=== PATIENT | male | born 1985 | race Caucasian/White ===

== ENCOUNTER 2017-07-14 06:55 | Inpatient (IN) | payer OTHER ==
[~2017-07-14] VITALS: Ht 170.2 cm; Wt 112.6 kg
[2017-07-14 07:45] VITALS: BP 127/80; PULSE 81; RESP 18
[2017-07-14 08:03] VITALS: BP 127/80; RESP 18
[2017-07-14 09:27] VITALS: Ht 170.2 cm; Wt 112.6 kg
[2017-07-14] MEDS ORDERED: morphine 2 MG INJ IV PRN (10:00)
[2017-07-14] MEDS ORDERED: TAMSULOSIN (SR) 0.4 MG CAP PO SCH (10:00)
[2017-07-14] MEDS ORDERED: ONDANSETRON 4 MG INJ IV PRN (10:00)
[2017-07-14] MEDS ORDERED: NACL 0.9% 3 ML SYG IV SCH (10:00)
[2017-07-14] MEDS ORDERED: IBUPROFEN 600 MG TAB PO PRN (10:00)
--- NOTE | 2017-07-14 10:15 | HP ---
Date/Time of Note Date/Time of Note DATE: 07/14/17 TIME: 10:02 Assessment/Plan VTE Prophylaxis VTE Prophylaxis Intervention: LMWH Lines/Catheters IV Catheter Type (from Nrsg): Peripheral IV Assessment/Plan Assessment/Plan 1. Right 2mm calculus within distal ureter - Will get KUB to monitor progression of stone - Pain control with Toradol, Morphine, and Dilaudid - Flomax BID - IV NSS and will encourage increase in fluid intake - Will place consult to urology 2. UTI - + UA from transfer hospital - Elevated WBC 15 - Patient had hives with PCN but willing to try again. Will give dose of Rocephin and have benadryl on board just in case. If has reaction will change antibiotics. Having abdominal issues with Cipro after 1 dose at other ED -UCx ordered for sensitivities 3. SEAN - Cr 1.4 and will continue to monitor. IV NSS - will avoid nephrotoxic agents 4. DVT prophylaxis - Lovenox 5. Code Status - Full Code 6. Diet - Regular All documentation, Labs, and imaging studies were reviewed personally by myself. >45 minutes was spent with this patient upon admission. All questions and concerns addressed. HPI/ROS Admit Date/Time Admit Date/Time Jul 14, 2017 at 07:40 Hx of Present Illness 32 yo M with h/o nephrolitiasis presented to [facility] with right flank pain, nausea, and vomiting. Patient states the pain is similar to his previous episode of kidney stones. He states the pain is severe, right flank area, radiating to his groin which started at 12:30am last night. CT abdomen showed 2mm right ureteral stone with mild right hydroureteronephrosis. He was given pain medication and IV NSS with minimal relief. He was also found to have an elevated WBC and + UA. One dose of Cipro was given prior to transfer. Patient states he has had multiple episodes of nephrolithiasis since November 2016 with the last being 3 weeks ago with a 7mm stone in left ureter. He has never been hospitalized in the past. He has not followed with a Urologist in the past as well. Patient does admit to a PCN allergy with reported hives as a child but denies any anaphylaxis reaction. He would like to try PCN again but offered cephalosporin. Patient states he was getting upset stomach after Cipro was administered. ROS Constitutional: chills, diaphoresis, nausea, No febrile Eyes: no complaints ENT: no complaints Respiratory: no complaints Cardiovascular: no complaints Gastrointestinal: nausea, vomiting, No decreased appetite Genitourinary: flank pain, No dysuria, No hematuria Musculoskeletal: no complaints Skin: no complaints Neurologic: no complaints Endocrine: no complaints Lymphatic: no complaints Psychological: no complaints Immunologic: no complaints PMH/Family/Social Past Medical History Medical History: other (kidney stones) Past Surgical History Past Surgical Hx: no surgical history Family History Significant Family History: no pertinent family hx Social History Alcohol Use: none Smoking Status: Never smoker Drug Use: none Exam/Review of Systems Vital Signs Vitals Vital Signs Date Time Temp Pulse Resp B/P Pulse Ox O2 Delivery O2 Flow Rate FiO2 07/14/17 08:03 97.9 81 18 127/80 98 Exam Constitutional: alert, distress, oriented, well developed Psych: no complaints Head: atraumatic, normocephalic Eyes: EOMI, nl sclera ENMT: mucosa pink and moist Neck: non-tender, supple Respiratory: clear to auscultation, normal air movement, No crackles/rales, No diminished breath sounds, No wheezing Cardiovascular: nl pulses, regular rate and rhythm, No murmurs/extra sounds Gastrointestinal: nl liver, spleen, soft, No distended, No mass, No rebound or guarding, No tender Genitourinary - Male: CVA tenderness, No discharge Musculoskeletal: nl extremities to inspection Extremities: normal pulses Neurological: [employer] II-XII intact, nl mental status, nl speech, nl strength Skin: nl turgor Lymph: nl lymph nodes Medications Medications Current Medications Ondansetron HCl (Zofran Inj) 4 mg Q6H PRN IV NAUSEA AND/OR VOMITING; Start 08/20 at 10:00 Hydromorphone HCl (Dilaudid) 0.5 mg Q4H PRN IV SEVERE PAIN LEVEL 7-10; Start at 10:00 Enoxaparin Sodium (Lovenox) 40 mg DAILY SC ; Start 07/15/17 at 09:00 Morphine Sulfate (morphine) 2 mg Q4H PRN IV severe pain; Start 07/14/17 at 10: 00 Tamsulosin HCl (Flomax) 0.4 mg HS PO ; Start 9/10/17 at 10:00 Ketorolac Tromethamine (Toradol) 30 mg Q6H PRN IV PAIN; Start 07/14/17 at 10:00 ; Stop 07/17/17 at 09:59 MICK TORRES MD Jul 14, 2017 10:13
[2017-07-14] MEDS ORDERED: DIPHENHYDRAMINE 50 MG INJ IV PRN (10:30)
[2017-07-14] MEDS ORDERED: CIPROFLOXACIN 400MG/D5W 200 ML IVPB SCH (10:30)
[2017-07-14] MEDS ORDERED: CEFTRIAXONE 1 GM INJ IM SCH (10:30)
[2017-07-14] MEDS: KETOROLAC 30 MG INJ IV PRN ×2 (10:41→20:26)
[2017-07-14] MEDS: SOD CHLORIDE 0.9% 1,000 ML IV SCH ×2 (10:42→22:40)
[2017-07-14 10:44] LABS: BASOPHILS % 0.2 % (0.0-2.0); EOSINOPHILS # 0.1 10^3/ul (0.0-0.5); EOSINOPHILS % 0.8 % (0.0-7.0); HEMATOCRIT 42.1 % (42.0-52.0); HEMOGLOBIN 14.1 g/dl (14.0-18.0); LYMPHOCYTES # 2.4 10^3/ul (0.8-2.9); LYMPHOCYTES % 15.8 % (15.0-51.0); MEAN CORPUSCULAR HGB CONC 33.5 g/dl (32.0-37.0); MEAN CORPUSCULAR VOLUME 92.5 fl (82.0-101.0); MEAN PLATELET VOLUME 9.9 fl (7.4-10.4); MONOCYTE # 1.1 10^3/ul (0.3-0.9); NEUTROPHILS % 75.7 % (39.0-77.0); PLATELET COUNT 257 10^3/UL (140-415); RED BLOOD COUNT 4.55 10^6/ul (4.70-6.10); WHITE BLOOD COUNT 15.3 10^3/ul (4.8-10.8)
[2017-07-14] MEDS: CEFTRIAXONE 1 GM/NS 50 ML IVPB SCH (10:52)
[2017-07-14] MEDS: LACTOBACILLUS RHAMNOSUS CAP PO SCH ×2 (10:52→20:26)
[2017-07-14 11:01] LABS: ALBUMIN 3.8 g/dl (3.3-4.9); ALBUMIN/GLOBULIN RATIO 1.26; BILIRUBIN,INDIRECT 0.6 mg/dl (0-1.1); BILIRUBIN,TOTAL 0.6 mg/dl (0.2-1.3); CREATININE 1.25 mg/dl (0.61-1.24); POTASSIUM 4.3 mmol/L (3.5-5.1); TOTAL PROTEIN 6.8 g/dl (6.1-8.1)
[2017-07-14] MEDS: HYDROmorphONE 1 MG/ML SYG IV PRN ×2 (12:00→22:47)
[2017-07-14 12:14] LABS: ADD UMIC YES; UR ASCORBIC ACID NEGATIVE (NEGATIVE); UR BILIRUBIN (Dip) NEGATIVE (NEGATIVE); UR BLOOD (Dip) 2+ mg/dL (NEGATIVE); UR CLARITY CLEAR (CLEAR); UR COLOR YELLOW (YELLOW); UR GLUCOSE (Dip) NEGATIVE (NEGATIVE); UR KETONES (Dip) NEGATIVE (NEGATIVE); UR LEUKOCYTE ESTERASE (Dip) NEGATIVE Leu/ul (NEGATIVE); UR NITRITE (Dip) NEGATIVE (NEGATIVE); UR RBC 51 /HPF (0-5); UR SPECIFIC GRAVITY (Dip) 1.013 (1.003-1.030); UR TOTAL PROTEIN (Dip) NEGATIVE (NEGATIVE); UR UROBILINOGEN (Dip) NEGATIVE (NEGATIVE)
[2017-07-14 14:37] VITALS: BP 119/91; RESP 18
[2017-07-14 19:25] VITALS: BP 132/58; RESP 20
[2017-07-14] MEDS: TAMSULOSIN (SR) 0.4 MG CAP PO SCH (20:26)
--- NOTE | 2017-07-14 20:38 | RADRPT ---
PROCEDURE: XR Abdomen. CLINICAL INDICATION: Calculus and distal right ureter previous CT scan. TECHNIQUE: Single AP view of the abdomen is available for review. COMPARISON: No comparison exams are available at this institution. FINDINGS: The bowel gas pattern is normal. There is no evidence of obstruction. There are no abnormal calcifications overlying the urinary tracts. No free air identified. The osseous structures do not demonstrate acute abnormality. IMPRESSION: 1. No evidence of bowel obstruction, perforation or radiopaque calculi overlying the urinary tracts . RPTAT: HLDM .Matthew Damon MD, MD Date Time Electronically viewed and signed by .Matthew Damon MD, MD on 07/14/2017 20:38 .M/
[2017-07-15 02:28] VITALS: BP 127/229; RESP 18
[2017-07-15 05:51] LABS: BASOPHILS % 0.4 % (0.0-2.0); EOSINOPHILS # 0.3 10^3/ul (0.0-0.5); EOSINOPHILS % 3.6 % (0.0-7.0); HEMATOCRIT 41.2 % (42.0-52.0); HEMOGLOBIN 13.9 g/dl (14.0-18.0); LYMPHOCYTES # 3.2 10^3/ul (0.8-2.9); LYMPHOCYTES % 35.6 % (15.0-51.0); MEAN CORPUSCULAR HEMOGLOBIN 31.2 pg (29.0-33.0); MEAN CORPUSCULAR HGB CONC 33.7 g/dl (32.0-37.0); MEAN CORPUSCULAR VOLUME 92.6 fl (82.0-101.0); MEAN PLATELET VOLUME 10.3 fl (7.4-10.4); MONOCYTE # 0.6 10^3/ul (0.3-0.9); MONOCYTES % 6.6 % (0.0-11.0); NEUTROPHILS % 53.4 % (39.0-77.0); PLATELET COUNT 244 10^3/UL (140-415); RED BLOOD COUNT 4.45 10^6/ul (4.70-6.10); RED CELL DISTRIBUTION WIDTH 11.9 % (11.5-14.5); WHITE BLOOD COUNT 9.1 10^3/ul (4.8-10.8)
[2017-07-15] MEDS: SOD CHLORIDE 0.9% 1,000 ML IV SCH ×2 (06:00→08:12)
[2017-07-15 06:16] LABS: ALBUMIN 3.5 g/dl (3.3-4.9); CALCIUM 8.6 mg/dl (8.4-10.2); CREATININE 1.05 mg/dl (0.61-1.24); PHOSPHORUS 3.1 mg/dl (2.5-4.9); POTASSIUM 3.9 mmol/L (3.5-5.1)
[2017-07-15] MEDS: HYDROmorphONE 1 MG/ML SYG IV PRN (06:56)
[2017-07-15 07:40] VITALS: BP 140/93; RESP 20
[2017-07-15] MEDS: KETOROLAC 30 MG INJ IV PRN (07:48)
[2017-07-15] MEDS: LACTOBACILLUS RHAMNOSUS CAP PO SCH (07:55)
[2017-07-15] MEDS: TAMSULOSIN (SR) 0.4 MG CAP PO SCH (07:56)
[2017-07-15] MEDS ORDERED: ENOXAPARIN 40 MG/0.4 ML SYG SC SCH (09:00)
[2017-07-15] MEDS: CEFTRIAXONE 1 GM/NS 50 ML IVPB SCH (12:12)
--- NOTE | 2017-07-15 14:52 | PN ---
Date/Time of Note Date/Time of Note DATE: 07/15/17 TIME: 14:45 Assessment/Plan VTE Prophylaxis VTE Prophylaxis Intervention: ambulation Lines/Catheters IV [facility] Type (from [facility]): Peripheral IV Urinary Cath still in place: No Assessment/Plan Chief Complaint/Hosp Course Assessment and plan 1. Right 2 mm calculus within the distal ureter. Continue with analgesics. Less frequently at this time. Will monitor while on Flomax for now. Will consider urologist consultation pending clinical course. 2. Urinary tract infection. Continue antibiotics. Appears stable at present. 3. Acute kidney injury. Improved status post IV fluids. Will monitor for now. 4. DVT prophylaxis: Early ambulation Disposition plan: Continue IV fluids. Monitor for clinical improvement. Anticipate discharge within the next 24 hours medically stable Discussed plan of care with Dr. Chamberlain Problems: Subjective 24 Hr Interval Summary Free Text/Dictation reported with pain this morning. none now. improved at this time. Exam/Review of Systems Vital Signs Vitals Vital Signs Date Time Temp Pulse Resp B/P Pulse Ox O2 Delivery O2 Flow Rate FiO2 07/15/17 07:40 97.5 76 20 140/93 99 07/14/17 07:45 Room Air Intake and Output 07/14/17 07/14/17 07/15/17 15:00 23:00 07:00 Intake Total 2450 ml 1250 ml Output Total 1200 ml Balance 2450 ml 50 ml Exam Constitutional: alert Psych: no complaints Head: normocephalic Neck: supple Respiratory: clear to auscultation Cardiovascular: regular rate and rhythm Gastrointestinal: non-tender, soft Musculoskeletal: nl extremities to inspection, nl gait and stance Neurological: MOLD [employer]IP[employer] II-XII intact, nl speech Results Result Diagram: 07/15/17 0431 07/15/17 0431 Results 24 hrs Laboratory Tests Test 07/15/17 04:31 White Blood Count 9.1 # Red Blood Count 4.45 L Hemoglobin 13.9 L Hematocrit 41.2 L Mean Corpuscular Volume 92.6 Mean Corpuscular Hemoglobin 31.2 Mean Corpuscular Hemoglobin Concent 33.7 Red Cell Distribution Width 11.9 Platelet Count 244 Mean Platelet Volume 10.3 Neutrophils % 53.4 Lymphocytes % 35.6 Monocytes % 6.6 Eosinophils % 3.6 Basophils % 0.4 Nucleated Red Blood Cells % 0.0 Neutrophils # (Manual) 4.9 Lymphocytes # 3.2 H Monocytes # 0.6 Eosinophils # 0.3 Basophils # 0.0 Nucleated Red Blood Cells # 0.0 Sodium Level 141 Potassium Level 3.9 Chloride Level 108 Carbon Dioxide Level 29 Anion Gap 8 Blood Urea Nitrogen 11 Creatinine 1.05 Glucose Level 91 Calcium Level 8.6 Phosphorus Level 3.1 Magnesium Level 2.0 Albumin 3.5 Medications Medications Current Medications Ondansetron HCl (Zofran Inj) 4 mg Q6H PRN IV NAUSEA AND/OR VOMITING Last administered on 07/15/17 07:58; Admin Dose 4 MG; Start 07/14/17 at 10:00 Hydromorphone HCl (Dilaudid) 0.5 mg Q4H PRN IV SEVERE PAIN LEVEL 7-10 Last administered on 07/15/17 06:56; Admin Dose 0.5 MG; Start 07/14/17 at 10:00 Enoxaparin Sodium (Lovenox) 40 mg DAILY SC ; Start 07/15/17 at 09:00 Morphine Sulfate (morphine) 2 mg Q4H PRN IV severe pain; Start 07/14/17 at 10: 00 Ketorolac Tromethamine (Toradol) 30 mg Q6H PRN IV PAIN Last administered on 07:48; Admin Dose 30 MG; Start 07/14/17 at 10:00; Stop 07/17/17 at 09:59 Tamsulosin HCl 0.4 mg 0.4 mg BID PO Last administered on 07/15/17 07:56; Admin Dose 0.4 MG; Start 07/14/17 at 21:00 Sodium Chloride (NS) 1,000 ml @ 100 mls/hr Q10H IV Last administered on 08:12; Admin Dose 100 MLS/HR; Start 07/14/17 at 10:00 Lactobacillus Acidophilus/ Rhamnosus (Culturelle) 1 cap BID PO Last administered on 07/15/17 07:55; Admin Dose 1 CAP; Start 07/14/17 at 10:30 Diphenhydramine HCl 25 mg 25 mg Q6H PRN IV PRURITUS; Start 07/14/17 at 10:30 Ceftriaxone Sodium (Rocephin) 50 ml @ 100 mls/hr Q24H IVPB Last administered on 07/15/17 12:12; Admin Dose 100 MLS/HR; Start 07/14/17 at 11:00 MEKHI DENG Jul 15, 2017 14:52
[2017-07-15] MEDS ORDERED: TAMS-14 PO (17:53)
[2017-07-15] MEDS ORDERED: HYDR-906 PO (17:53)
--- NOTE | 2017-07-15 17:54 | PDOCDIS ---
Discharge Instructions DIAGNOSIS Discharge Diagnosis 1. Right 2 mm calculus within the distal ureter. 2. Urinary tract infection. 3. Acute kidney injury. CONDITION Patient Condition: Stable HOME CARE INSTRUCTIONS: Diet Instructions: Low Fat /Cholesterol FOLLOW UP/APPOINTMENTS Follow-up Plan 1. Follow up with your primary care provider in one week MEKHI DENG Jul 15, 2017 17:54
== END 2017-07-15 19:45 | disposition home or self-care (01) | DRG 694 ==
LOC: MS1 07:40
PROVIDERS: ADMIT Family Medicine; ATTEND Family Medicine
DX: N13.2 Hydronephrosis with renal and ureteral calculous obstruction (principal); N17.9 Acute kidney failure, unspecified; N39.0 Urinary tract infection, site not specified
CPT/HCPCS: 74000; 80053; 80069; 81001; 83735; 85025; 87086; J0696; J0744; J1170; J1650; J1885; J2405; J7030

== ENCOUNTER 2017-09-21 09:53 | Emergency (ER) | payer OTHER ==
[~2017-09-21] VITALS: Ht 167.6 cm; Wt 113.0 kg
[~2017-09-21 09:53] MED LIST: HYDR-906 PO; TAMS-14 PO
[2017-09-21 09:56] VITALS: Ht 167.6 cm; Wt 113.0 kg
[2017-09-21] MEDS ORDERED: ONDANSETRON 4 MG INJ IV STA (10:03)
[2017-09-21] MEDS ORDERED: KETOROLAC 30 MG INJ IV STA (10:03)
[2017-09-21] MEDS ORDERED: SOD CHLORIDE 0.9% 1,000 ML IV STA (10:03)
[2017-09-21 10:45] LABS: BASOPHIL # 0.1 10^3/ul (0.0-0.1); BASOPHILS % 0.6 % (0.0-2.0); EOSINOPHILS # 0.3 10^3/ul (0.0-0.5); EOSINOPHILS % 2.7 % (0.0-7.0); HEMATOCRIT 45.4 % (42.0-52.0); HEMOGLOBIN 15.5 g/dl (14.0-18.0); LYMPHOCYTES % 35.7 % (15.0-51.0); MEAN CORPUSCULAR HEMOGLOBIN 30.8 pg (29.0-33.0); MEAN CORPUSCULAR HGB CONC 34.1 g/dl (32.0-37.0); MEAN CORPUSCULAR VOLUME 90.3 fl (82.0-101.0); MEAN PLATELET VOLUME 10.1 fl (7.4-10.4); MONOCYTE # 0.7 10^3/ul (0.3-0.9); MONOCYTES % 6.2 % (0.0-11.0); NEUTROPHILS % 54.4 % (39.0-77.0); PLATELET COUNT 293 10^3/UL (140-415); RED BLOOD COUNT 5.03 10^6/ul (4.70-6.10); RED CELL DISTRIBUTION WIDTH 11.9 % (11.5-14.5); WHITE BLOOD COUNT 11.1 10^3/ul (4.8-10.8)
[2017-09-21 10:48] LABS: ADD UMIC YES; UR ASCORBIC ACID NEGATIVE (NEGATIVE); UR BILIRUBIN (Dip) NEGATIVE (NEGATIVE); UR BLOOD (Dip) 3+ mg/dL (NEGATIVE); UR CLARITY SLIGHTLY CLOUDY (CLEAR); UR COLOR YELLOW (YELLOW); UR GLUCOSE (Dip) NEGATIVE (NEGATIVE); UR KETONES (Dip) NEGATIVE (NEGATIVE); UR LEUKOCYTE ESTERASE (Dip) NEGATIVE Leu/ul (NEGATIVE); UR MUCUS FEW /HPF (NONE SEEN); UR NITRITE (Dip) NEGATIVE (NEGATIVE); UR RBC > 182 /HPF (0-5); UR SPECIFIC GRAVITY (Dip) 1.027 (1.003-1.030); UR TOTAL PROTEIN (Dip) 2+ mg/dl (NEGATIVE); UR UROBILINOGEN (Dip) NEGATIVE (NEGATIVE)
[2017-09-21 10:54] LABS: ALBUMIN 4.4 g/dl (3.3-4.9); ALBUMIN/GLOBULIN RATIO 1.18; BILIRUBIN,INDIRECT 0.6 mg/dl (0-1.1); BILIRUBIN,TOTAL 0.6 mg/dl (0.2-1.3); CALCIUM 9.7 mg/dl (8.4-10.2); CREATININE 1.03 mg/dl (0.61-1.24); POTASSIUM 3.9 mmol/L (3.5-5.1); TOTAL PROTEIN 8.1 g/dl (6.1-8.1)
--- NOTE | 2017-09-21 11:04 | RADRPT ---
PROCEDURE: CT abdomen and pelvis without contrast. CLINICAL INDICATION: Left flank pain TECHNIQUE: CT scan of the abdomen and pelvis without contrast was performed and is reconstructed a t 2.5 mm contiguous axial intervals from the dome of the diaphragm to the inferior pubic rami.. The patient was scanned without intravenous contrast. Sagittal and coronal reformatted images were obt ained from the axial source images. The calculated radiation dose measures 23 mGy centimeters. The C TDI measures 1514 mGy. Individualized dose optimization technique was used for the performance of this exam. This included 1. Automated exposure control. 2. Adjustment of the mA and / or kV according to the patient's size. 3. Use of iterative reconstructed technique. COMPARISON: None. FINDINGS: The lung bases are clear of any infiltrate or nodule. No effusion is seen. The liver is of normal size, contour and attenuation with no mass or ductal dilatation. No gallston es are visualized. No splenic, adrenal or pancreatic abnormalities present. Kidneys are of normal size and contour. No masses stone is seen. There is mild to moderate left hyd roureter nephrosis with a the 7 mm stone in the distal ureter immediately superjacent to the uretero vesicular junction.. The right intrarenal collecting system and ureter are normal. No bladder mass or stone is present. Prostate and seminal vesicles are normal. There is no aneurysm. No adenopathy is present. No bowel mass or obstruction is present. The appendix is normal. No phlegmon, ascites or pneumop eritoneum is visualized. The osseous structures are intact. IMPRESSION: Mild to moderate left hydroureter nephrosis with 7 ml calculus distal ureter. .James Welch MD, Date Time Electronically viewed and signed by .James Welch MD, MD on 09/21/2017 11:04 .A/
--- NOTE | 2017-09-21 11:35 | EN ---
Date/Time of Note Date/Time of Note DATE: 09/21/17 TIME: 11:35 ER Progress Note Case was discussed in detail with the advanced practice provider. Patient was seen independently Diagnostic assessment reviewed. I agree with the assessment and care plan as discussed. GINA SOLANO Sep 21, 2017 11:35
[2017-09-21] MEDS ORDERED: CIPR500T4 PO (11:48)
[2017-09-21] MEDS ORDERED: IBUP-1542 PO (11:48)
[2017-09-21] MEDS ORDERED: ONDA4TAB14 PO (11:49)
[2017-09-21] MEDS ORDERED: HYDR-906 PO (11:49)
[2017-09-21] MEDS ORDERED: TAMS-14 PO (11:49)
--- NOTE | 2017-09-21 12:03 | ERD ---
ER Documentation Chief Complaint Chief Complaint Complains of flank pain Hx of Kidney stones HPI Patient is a 32-year-old male with a past medical history of nephrolithiasis who presents to the ED for concerns of left-sided flank pain which started 2 hours ago. Patient states that his pain is radiating into his left groin. Patient does report urinary frequency however he denies any hematuria or dysuria. Patient denies any fevers or chills. Patient denies any upper abdominal pain. Does report nausea and one episode of vomiting earlier today secondary to his pain. Patient denies taking any medications for his pain. Patient denies any chest pain, shortness breath, left upper extremity pain or loss of consciousness. ROS All systems reviewed and are negative except as per history of present illness. Medications Home Meds Active Scripts Tamsulosin Hcl* (Flomax*) 0.4 Mg Cap.er.24h, 0.4 MG PO BID, #30 CAP Prov:TEREZA LYN PA-C 09/21/17 Ondansetron (Ondansetron Odt) 4 Mg Tab.rapdis, 4 MG PO Q6H Y for NAUSEA AND/OR VOMITING, #10 TAB Prov:EBONITEREZA Carroll PA-C 09/21/17 Hydrocodone/Acetaminophen ([place] 5-325 Tablet) 1 Each Tablet, 1 TAB PO Q6H Y for PAIN, #7 TAB Prov:TEREZA LYN PA-C 09/21/17 Ciprofloxacin Hcl* (Ciprofloxacin Hcl*) 500 Mg Tablet, 500 MG PO BID for 7 Days , TAB Prov:TEREZA LYN PA-C 09/21/17 Ibuprofen* (Motrin*) 600 Mg Tab, 600 MG PO Q6, #30 TAB Prov:EBONITEREZA PA-C 09/21/17 Hydrocodone/Acetaminophen ([place] 5-325 Tablet) 1 Each Tablet, 1 EACH PO Q4 Y for PAIN, #25 TAB Prov:MEKHI DENG 07/15/17 Tamsulosin Hcl* (Flomax*) 0.4 Mg Cap.er.24h, 0.4 MG PO BID for 14 Days, CAP Prov:MEKHI DENG 07/15/17 Allergies Allergies: Coded Allergies: Penicillins (Verified Allergy, Mild, HIVES, 07/14/17) PMhx/Soc Medical and Surgical Hx: pt denies Medical Hx, pt denies Surgical Hx Hx Alcohol Use: No Hx Substance Use: No Hx Tobacco Use: No Physical Exam Vitals Vital Signs Date Time Temp Pulse Resp B/P Pulse Ox O2 Delivery O2 Flow Rate FiO2 09/21/17 09:56 98.3 71 20 152/86 98 Physical Exam GENERAL: Well-developed, well-nourished male. Appears in no acute distress. HEAD: Normocephalic, atraumatic. EYES: Pupils are equally reactive bilaterally. EOMs grossly intact. No conjunctival erythema. ENT: Moist mucous membranes. No uvula deviation. No kissing tonsils. NECK: Supple. No meningismus. Normal range of motion of the neck. LUNG: Clear to auscultation bilaterally. No rhonchi, wheezing, rales or coarse breath sounds. HEART: Regular rate and rhythm. No murmurs, rubs or gallops. ABDOMEN: Soft, nontender, and nondistended. Positive bowel sounds in all four quadrants. No rebound tenderness, no guarding. (-) McBurney's point tenderness. Left side CVA tenderness. EXTREMITIES: Equal pulses bilaterally. No peripheral clubbing, cyanosis or edema. No unilateral leg swelling. NEUROLOGIC: Alert and oriented. Moving all four extremities without any difficulty. Normal speech. Steady gait. SKIN: Normal color. Warm and dry. No rashes or lesions. Result Diagram: 09/21/17 1003 09/21/17 1003 Results 24 hrs Laboratory Tests Test 09/21/17 10:03 09/21/17 10:22 White Blood Count 11.110^3/ul Red Blood Count 5.0310^6/ul Hemoglobin 15.5g/dl Hematocrit 45.4% Mean Corpuscular Volume 90.3fl Mean Corpuscular Hemoglobin 30.8pg Mean Corpuscular Hemoglobin Concent 34.1g/dl Red Cell Distribution Width 11.9% Platelet Count 24326^3/UL Mean Platelet Volume 10.1fl Neutrophils % 54.4% Lymphocytes % 35.7% Monocytes % 6.2% Eosinophils % 2.7% Basophils % 0.6% Nucleated Red Blood Cells % 0.0/100WBC Neutrophils # 6.010^3/ul Lymphocytes # 4.010^3/ul Monocytes # 0.710^3/ul Eosinophils # 0.310^3/ul Basophils # 0.110^3/ul Nucleated Red Blood Cells # 0.010^3/ul Sodium Level 143mmol/L Potassium Level 3.9mmol/L Chloride Level 105mmol/L Carbon Dioxide Level 27mmol/L Anion Gap 15 Blood Urea Nitrogen 15mg/dl Creatinine 1.03mg/dl Glucose Level 121mg/dl Calcium Level 9.7mg/dl Total Bilirubin 0.6mg/dl Direct Bilirubin 0.00mg/dl Indirect Bilirubin 0.6mg/dl Aspartate Amino Transf (AST/SGOT) 31IU/L Alanine Aminotransferase (ALT/SGPT) 46IU/L Alkaline Phosphatase 92IU/L Total Protein 8.1g/dl Albumin 4.4g/dl Globulin 3.70g/dl Albumin/Globulin Ratio 1.18 Urine Color YELLOW Urine Clarity SLIGHTLY CLOUDY Urine pH 5.0 Urine Specific Ruffin 1.027 Urine Ketones NEGATIVEmg/dL Urine Nitrite NEGATIVEmg/dL Urine Bilirubin NEGATIVEmg/dL Urine Urobilinogen NEGATIVEmg/dL Urine Leukocyte Esterase NEGATIVELeu/ul Urine Microscopic RBC > 182/HPF Urine Microscopic WBC 13/HPF Urine Mucus FEW/HPF Urine Hemoglobin 3+mg/dL Urine Glucose NEGATIVEmg/dL Urine Total Protein 2+mg/dl Current Medications Medications (Trade) Dose Ordered Sig/Keena Route PRN Reason Start Time Stop Time Status Last Admin Dose Admin Sodium Chloride (NS) 1,000 ml @ 1,000 mls/hr Q1H STAT IV 09/21/17 10:03 09/21/17 11:02 DC 09/21/17 10:17 Ondansetron HCl (Zofran Inj) 4 mg ONCE STAT IV 09/21/17 10:03 09/21/17 10:04 DC 09/21/17 10:15 Ketorolac Tromethamine (Toradol) 30 mg ONCE STAT IV 09/21/17 10:03 09/21/17 10:04 DC 09/21/17 10:16 Procedures/MDM ED COURSE: The patient was stable throughout ED course. I kept the patient and/or family informed of laboratory and diagnostic imaging results throughout the ED course. DIAGNOSTIC IMAGING: Read by radiologist. DIAGNOSTIC IMAGING REPORT Patient: SVEN DOZIER : 1985 Age: 32 Sex: M MR #: [id number] DOS: 09/21/17 1004 Ordering MD: TEREZA LYN PA-C Location: [facility] Room/Bed: PROCEDURE: CT abdomen and pelvis without contrast. CLINICAL INDICATION: Left flank pain TECHNIQUE: CT scan of the abdomen and pelvis without contrast was performed and is reconstructed at 2.5 mm contiguous axial intervals from the dome of the diaphragm to the inferior pubic rami.. The patient was scanned without intravenous contrast. Sagittal and coronal reformatted images were obtained from the axial source images. The calculated radiation dose measures 23 mGy centimeters. The CTDI measures 1514 mGy. Individualized dose optimization technique was used for the performance of this exam. This included 1. Automated exposure control. 2. Adjustment of the mA and / or kV according to the patient's size. 3. Use of iterative reconstructed technique. COMPARISON: None. FINDINGS: The lung bases are clear of any infiltrate or nodule. No effusion is seen. The liver is of normal size, contour and attenuation with no mass or ductal dilatation. No gallstones are visualized. No splenic, adrenal or pancreatic abnormalities present. Kidneys are of normal size and contour. No masses stone is seen. There is mild to moderate left hydroureter nephrosis with a the 7 mm stone in the distal ureter immediately superjacent to the ureterovesicular junction.. The right intrarenal collecting system and ureter are normal. No bladder mass or stone is present. Prostate and seminal vesicles are normal. There is no aneurysm. No adenopathy is present. No bowel mass or obstruction is present. The appendix is normal. No phlegmon , ascites or pneumoperitoneum is visualized. The osseous structures are intact. IMPRESSION: Mild to moderate left hydroureter nephrosis with 7 ml calculus distal ureter. .James Welch MD, Date Time Electronically viewed and signed by .James Welch MD, on 09/21/2017 11: 04 .A/ CC: TEREZA LYN PA-C PROCEDURES: None. MEDICATIONS GIVEN: IV Fluids, Toradol, Zofran, [place] Patient tolerated medication well with no adverse reactions. Patient did have a ride home. MEDICAL DECISION MAKING: This is a 32-year-old male presents to ED with concerns of left flank pain radiating into his left groin 2 hours. Patient does have a history of kidney stones. Vital signs were reviewed. Patient was afebrile. Patient was not hypoxic. Blood work was obtained. Noted to have a white count of 11. No signs of anemia. UA showed positive blood. CT abdomen and pelvis showed Mild to moderate left hydroureter nephrosis with 7 ml calculus distal ureter. Discussed case with my supervising physician Dr. Woo who advised the patient is stable for outpatient management. Patient's pain was significantly relieved with Toradol. Patient's creatinine was within normal limits. Patient' s urine showed few WBCs however I will empirically treat the patient at this time. I explained to the patient at length that he will need to follow-up with a urologist on an outpatient basis. Referral information provided. At this time, the patient's presentation is most consistent with nephrolithiasis. Low suspicion for intractable pain, septic stone, appendicitis, diverticulitis, cholecystitis, bowel obstruction, bowel perforation, testicular torsion, ectopic , PID, ovarian torsion, or tubo-ovarian abscess. PRESCRIPTIONS: Ibuprofen, [place], Flomax, Zofran, ciprofloxacin DISCHARGE: At this time, patient is stable for discharge and outpatient management. Referral information for urologist given. Copy of all blood work and imaging studies obtained today were given to the patient. I have instructed the patient to follow-up with his/her primary care physician in 1-2 days. If symptoms persist, patient may need to see a specialist for further examinations and testing. I have instructed the patient to promptly return to the ER at any time for any new or worsening symptoms including increased increased pain, fever , nausea, vomiting, urinary changes or weakness. The patient and/or family expressed understanding of and agreement with this plan. All questions were answered. Home care instructions were provided. Patient's blood pressure was elevated (>120/80) but appears stable without evidence of hypertensive emergency, hypertensive urgency or end-organ failure. I had discussion with the patient about the risks of hypertension. I have advised the patient to follow up with his/her primary care physician for outpatient monitoring and treatment for hypertension in 2-3 days. I have instructed the patient to return to the ER for any new or worsening symptoms including chest pain, shortness of breath, headache, blurred vision, confusion, nausea, vomiting or LOC. Disclaimer: Inadvertent spelling and grammatical errors are likely due to EHR/ dictation software use and do not reflect on the overall quality of patient care. Also, please note that the electronic time recorded on this note does not necessarily reflect the actual time of the patient encounter. Departure Diagnosis: Primary Impression: Nephrolithiasis Condition: Stable Patient Instructions: Understanding Kidney Stones Referrals: TOM RASCON MD,MAGDALENO POLANCO,AKANKSHA SCOTT,CONCHITA DAVIS,JAMES RIGGINS,SOLITARIO DUNAWAY,ANU LOPEZ= CELESTE JEFFREY RUTH C. NP SHAPIRO,JAMES BOJORQUEZ,KRISTY RUIZ,MICHAEL HUNT,KEYANNA Byers MD [facility] YOU HAVE RECEIVED A MEDICAL SCREENING EXAM AND THE RESULTS INDICATE THAT YOU DO NOT HAVE A CONDITION THAT REQUIRES URGENT TREATMENT IN THE EMERGENCY DEPARTMENT. FURTHER EVALUATION AND TREATMENT OF YOUR CONDITION CAN WAIT UNTIL YOU ARE SEEN IN YOUR DOCTORS OFFICE WITHIN THE NEXT 1-2 DAYS. IT IS YOUR RESPONSIBILITY TO MAKE AN APPOINTMENT FOR FOLOW-UP CARE. IF YOU HAVE A PRIMARY DOCTOR --you should call your primary doctor and schedule an appointment IF YOU DO NOT HAVE A PRIMARY DOCTOR YOU CAN CALL OUR PHYSICIAN REFERRAL HOTLINE AT IF YOU CAN NOT AFFORD TO SEE A PHYSICIAN YOU CAN CHOSE FROM THE FOLLOWING [facility] CLINICS [facility] [address] [facility]. [facility] [address] [facility]. [facility] [address] [facility] [facility] [address] [facility]. [facility] [address] [facility]. [facility]. [address] [facility]. [facility] YOU HAVE RECEIVED A MEDICAL SCREENING EXAM AND THE RESULTS INDICATE THAT YOU DO NOT HAVE A CONDITION THAT REQUIRES URGENT TREATMENT IN THE EMERGENCY DEPARTMENT. FURTHER EVALUATION AND TREATMENT OF YOUR CONDITION CAN WAIT UNTIL YOU ARE SEEN IN YOUR DOCTORS OFFICE WITHIN THE NEXT 1-2 DAYS. IT IS YOUR RESPONSIBILITY TO MAKE AN APPOINTMENT FOR FOLOW-UP CARE. IF YOU HAVE A PRIMARY DOCTOR --you should call your primary doctor and schedule and appointment IF YOU DO NOT HAVE A PRIMARY DOCTOR YOU CAN CALL OUR PHYSICIAN REFERRAL HOTLINE AT . IF YOU CAN NOT AFFORD TO SEE A PHYSICIAN YOU CAN CHOSE FROM THE FOLLOWING [facility] INSTITUTIONS: [facility] [address] [place] [address] [facility] [address] [place] [address] [facility] [address] [place] [address] Additional Instructions: Follow-up with the urologist on an outpatient basis. See referral information. Take all medications as prescribed. Drink plenty of fluids. Call your primary care doctor TOMORROW for an appointment during the next 1-2 days.See the doctor sooner or return here if your condition worsens before your appointment time. TEREZA LYN PA-C Sep 21, 2017 12:03
[2017-09-21 12:13] VITALS: BP 126/72; PULSE 72; RESP 20; TEMP 98.2
[2017-09-21] MEDS ORDERED: HYDROCODONE/APAP (10/325) TAB PO ONE (12:30)
== END 2017-09-21 12:16 | disposition home or self-care (01) ==
LOC: FTE 09:53
DX: N20.0 Calculus of kidney (principal)
CPT/HCPCS: 74176; 80053; 81001; 85025; J1885; J2405; J7030; Z7610; 36415; 96374; 96375

== ENCOUNTER 2017-11-18 22:16 | Emergency (ER) | END 2017-11-19 04:44 | disposition home or self-care (01) ==

== ENCOUNTER 2018-04-02 05:39 | Inpatient (IN) | END 2018-04-03 18:05 | disposition home or self-care (01) | DRG 390 ==

== ENCOUNTER 2018-07-28 17:16 | Emergency (ER) | END 2018-07-28 21:26 | disposition home or self-care (01) ==